=== PATIENT | male | born 1955 | race Caucasian/White ===

== ENCOUNTER 2017-03-29 06:48 | Day surgery (SDC) | payer BC ==
--- NOTE | 2017-03-21 10:15 | HP ---
DATE OF ADMISSION: 03/29/2017 HISTORY OF PRESENT ILLNESS: This is the first orthopedic outpatient admission for surgery for this 61-year- old male, who is being brought in for a right carpal tunnel release after suffering acute right carpal tunnel syndrome for the last 6-7 weeks with no improvement and treatment. 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 The procedure has been outlined to him. He understands the procedure and has consented to it. ALLERGIES: To sulfa. PAST MEDICAL HISTORY: The patient has a history of high blood pressure, type 2 diabetes along with asthma. He notes no specific medical problems at this point, has been stable. CURRENT MEDICATIONS: The patient currently is on lisinopril, Advair, and metformin. PAST SURGICAL HISTORY: Positive. The patient has had previous surgery, back surgeries and has had no anesthesia problems with the surgical procedures themselves. REVIEW OF SYSTEMS: The patient is a smoker. He smokes approximately 1 cigarette per day. Currently, he is working to quit on the smoking side. Alcohol, the patient is only occasional social drinker at this time. The patient notes no history of bleeding or any type of blood clot formation in the past. PHYSICAL EXAMINATION: GENERAL: Examination today reveals a well-developed, well-nourished, 61-year- old male, in moderate distress. HEAD EYES, EARS, NOSE, AND THROAT: Normocephalic. NECK: Supple. CHEST: Clear. CARDIAC: Regular rate. ABDOMEN: Soft. : Intact. EXTREMITIES: Examination of the right hand reveals a severe Tinel's reaction to the right hand carpal tunnel area. Positive decrease sensation to the thumb, index, middle, and ring finger. The patient has a weak stone banker formation. Circulation is intact. ASSESSMENT: Acute carpal tunnel syndrome, right wrist. Failed treatment. PLAN: This patient will undergo surgical right carpal tunnel ligament release. The procedure has been outlined to him. He understands the procedure and has consented to it. MMLIZET /[id number] MTDDana
[~2017-03-29 06:48] MED LIST: Lactated Ringers 1,000 ML IV SCH; Lidocaine 1%/Sod Bicarbonate in NS 8.4% 1 ML Syringe PRN; Sodium Chloride 0.9% 10 ML Syringe FLUSH PRN
[2017-03-29] MEDS ORDERED: fentaNYL 100 MCG/2 ML SDV ONE (07:05)
[2017-03-29] MEDS ORDERED: Propofol 200 MG/20 ML SDV ONE ×2 (07:05→08:22)
[2017-03-29] MEDS ORDERED: Midazolam 1 MG/ML 2 ML SDV ONE (07:05)
[2017-03-29] MEDS ORDERED: Lidocaine 0.5% 50 ML SDV ONE (07:12)
--- NOTE | 2017-03-29 07:18 | PCM.PREANE ---
Preanesthetic Assessment - Anesthesia/Transfusion/Family Hx Anesthesia History: Prior Anesthesia Without Reaction Family History of Anesthesia Reaction: No Intubation History: Unknown - Review of Systems General: No Symptoms Pulmonary: No Symptoms Cardiovascular: No Symptoms Gastrointestinal: No Symptoms Neurological: No Symptoms Other: Reports: None - Physical Assessment NPO Status Date: 03/29/17 NPO Status Time: 18:30 Pulse: 64 O2 Sat by Pulse Oximetry: 98 Respiratory Rate: 16 Blood Pressure: 120/71 Temperature: 97.3 C Height: 1.78 m Weight: 94.347 kg ASA Class: 3 ROM/Head Extension: Full Lungs: Clear to Auscultation Cardiovascular: Regular Rate - Allergies Allergies/Adverse Reactions: Allergies Allergy/AdvReac Type Severity Reaction Status Date / Time Sulfa (Sulfonamide Allergy Severe Hives Verified 03/28/17 14:51 Antibiotics) Fish Containing Products Allergy Swelling Verified 03/28/17 14:51 nut - unspecified [nut] Allergy Swelling Verified 03/28/17 14:51 - Anesthesia Plan Pre-Op Medication Ordered: Anxiolytic - Acknowledgements Anesthesia Type Planned: MARILYNN Pt an Appropriate Candidate for the Planned Anesthesia: Yes Alternatives and Risks of Anesthesia Discussed w Pt/Guardian: Yes Pt/Guardian Understands and Agrees with Anesthesia Plan: Yes PreAnesthesia Questionnaire HEENT History: Reports: Sinusitis, Other (See Below) Other HEENT History: impacted cerumen Cardiovascular History: Reports: High Cholesterol, Hypertension Respiratory History: Reports: Asthma, Sleep Apnea, Other (See Below) Other Respiratory History: bronchitis Gastrointestinal History: Reports: Other (See Below) Other Gastrointestinal History: hernia repair, GERD, anal fistula Genitourinary History: Reports: Other (See Below) Other Genitourinary History: dysuria, elevated PSA [employer]PERATOR History: Reports: None Musculoskeletal History: Reports: None Neurological History: Psychiatric History: Reports: None Endocrine/Metabolic History: Reports: None Hematologic History: Reports: Anemia Immunologic History: Reports: None Oncologic (Cancer) History: Reports: None Dermatologic History: Reports: Other (See Below) Other Dermatologic History: back surgery, achilles tendinitis, spinal stenosis, low back pain - Past Surgical History Head Surgeries/Procedures: Reports: None GI Surgical History: Reports: Appendectomy, Colonoscopy Neurological Surgical History: Reports: Laminectomy, Spinal Fusion - SUBSTANCE USE Smoking Status *Q: Current Every Day Smoker Tobacco Use Within Last Twelve Months: No Days Per Week of Alcohol Use: 1 Number of Drinks Per Day: 2 Total Drinks Per Week: 2 Recreational Drug Use History: No - HOME MEDS Home Medications: Home Meds metFORMIN [Glucophage XR] 500 tab PO DAILY 02/25/14 [History] Ezetimibe [Zetia] 10 mg PO DAILY 09/12/16 [History] Albuterol [IJD: Albuterol HFA] 2 puff INH Q4H PRN 03/28/17 [History] Aspirin 81 mg PO DAILY 03/28/17 [History] Fluticasone/Salmeterol [Advair 250-50 Diskus] 1 puff INH BID 03/28/17 [History] Lisinopril/Hydrochlorothiazide [Lisinopril-Hctz 20-12.5 mg Tab] 1 tab PO DAILY 03/28/17 [History] - CURRENT (IN HOUSE) MEDS Current Meds: Current Medications Lactated Ringer's (Ringers, Lactated) 1,000 mls @ 125 mls/hr IV ASDIRECTED ISIDRO Stop: 03/29/17 23:00 Lidocaine/Sodium Bicarbonate (Buffered Lidocaine 1% In Ns 8.4%) 0.25 ml .XX ONETIME PRN PRN Reason: Prior to IV Start Stop: 03/29/17 18:00 Sodium Chloride (Saline Flush) 10 ml FLUSH ASDIRECTED PRN PRN Reason: Keep Vein Open Stop: 03/29/17 18:00 Discontinued Medications Fentanyl (Sublimaze) Confirm Administered Dose 100 mcg .ROUTE .STK-MED ONE Stop: 03/29/17 07:06 Lidocaine HCl (Xylocaine-Mpf 0.5%) Confirm Administered Dose 50 ml .ROUTE .STK- MED ONE Stop: 03/29/17 07:13 Midazolam HCl (Versed 1 Mg/Ml) Confirm Administered Dose 2 mg .ROUTE .STK-MED ONE Stop: 03/29/17 07:06 Propofol (Diprivan 20 Ml) Confirm Administered Dose 200 mg .ROUTE .STK-MED ONE Stop: 03/29/17 07:06
[2017-03-29] MEDS ORDERED: Acetaminophen/HYDROcodone 325-5 MG Tab PO PRN (07:37)
[2017-03-29] MEDS ORDERED: Ondansetron 4 MG/2 ML SDV ONE (08:11)
[2017-03-29] MEDS ORDERED: Lidocaine 1% 2 ML ONE ×2 (08:20)
[2017-03-29] MEDS ORDERED: ceFAZolin 1 GM Vial ONE ×2 (08:21)
[2017-03-29] MEDS ORDERED: Sodium Bicarbonate 8.4% 50 MEQ/50 ML SDV ONE (08:22)
[2017-03-29] MEDS ORDERED: Dexamethasone 4 MG/ML SDV ONE (08:29)
[2017-03-29] MEDS ORDERED: Ketorolac 30 MG/ML SDV ONE (08:41)
[2017-03-29 08:48] VITALS: BP 111/68
--- NOTE | 2017-03-29 10:49 | PCM48HPAN ---
Post Anesthesia Note - EVALUATION WITHIN 48HRS OF ANESTHETIC Vital Signs in Normal Range: Yes Patient Participated in Evaluation: Yes Respiratory Function Stable: Yes Airway Patent: Yes Cardiovascular Function Stable: Yes Hydration Status Stable: Yes Pain Control Satisfactory: Yes Nausea and Vomiting Control Satisfactory: Yes Mental Status Recovered: Yes
--- NOTE | 2017-03-29 12:53 | OR ---
DATE OF OPERATION: 03/29/2017 SURGEON: Ronak Martínez MD PREOPERATIVE DIAGNOSIS: Severe carpal tunnel syndrome, right wrist, failed treatment. POSTOPERATIVE DIAGNOSIS: Severe carpal tunnel syndrome, right wrist, failed treatment. ANESTHESIA: Emily block with sedation. OPERATION PERFORMED: Right carpal tunnel ligament release, exploration of right carpal tunnel. DESCRIPTION OF PROCEDURE: The patient was taken to the operative room in a supine position and was placed under a light sedation with a [place] block anesthesia to the right upper extremity. After adequate anesthesia, the right arm was then prepped and draped by standard technique, and the operation proceeded with evaluation for approach to the right carpal tunnel using the radial aspect of the ring finger and beginning the incision parallel to that, approximately 1 cm distal to the flexion crease. Approximately, a 1.5 cm incision was used penetrating through the skin and the subcutaneous tissues. These were dissected off the palmar fascia, which was incised to expose the carpal ligament. Once the carpal ligament was exposed and, by direct visualization, was incised, entering the carpal canal by direct visualization. This was released proximally and distally by direct visualization, and then the operation proceeded with completion of release to just above the flexion crease using the carpal mini-instruments. Once the release was completed, the proximal portion was inspected. The nerve showed that the vasa vasorum returned very nicely into the area of release. By probing, no restricted bands could be seen covering or putting pressure on the nerve up to the flexion crease area. The operation then proceeded distally. The edge of the ligament was identified in the palmar fascia and then by direct visualization, again staying to the ulnar aspect of the median nerve, completion of the release was carried out to the palmar fatty tissue area. This was gently dissected away from the nerve area completing the decompression. The area was then thoroughly irrigated. Inspection of the nerve saw the vasa vasorum return entirely. There was significant bruising to the nerve at the base of the thenar eminence and in the area of major constriction and compression on the nerve itself. Once the release was completed and was satisfied that no further restricted bands laid across or putting pressure on the nerve, the operation proceeded with closure of the skin in a horizontal 4-0 Prolene mattress suture and then reinforced with 5-0 Prolene vertical suture. Standard dressings and splint was applied. The patient tolerated this procedure well. He left the operating room in a stable condition to his room for recovery. ESTIMATED BLOOD LOSS: MMODAL /[id number] MTDD
== END 2017-03-29 09:25 | disposition home or self-care (01) ==
LOC: JD.SDS 06:48
PROVIDERS: ATTEND Specialist
DX: G56.01 Carpal tunnel syndrome, right upper limb (principal); J45.21 Mild intermittent asthma with (acute) exacerbation; I10 Essential (primary) hypertension; E78.5 Hyperlipidemia, unspecified; E11.9 Type 2 diabetes mellitus without complications; E78.00 Pure hypercholesterolemia, unspecified; K21.9 Gastro-esophageal reflux disease without esophagitis; Z91.013 Allergy to seafood; Z91.018 Allergy to other foods; Z88.2 Allergy status to sulfonamides; Z79.84 Long term (current) use of oral hypoglycemic drugs; Z79.82 Long term (current) use of aspirin; Z79.899 Other long term (current) drug therapy; Z90.49 Acquired absence of other specified parts of digestive tract; Z98.890 Other specified postprocedural states; F17.210 Nicotine dependence, cigarettes, uncomplicated
CPT/HCPCS: 64721; J0690; J1100; J1885; J2250; J2405; J3010; J7120; 01810; J2704

== ENCOUNTER 2017-11-26 09:48 | Emergency (ER) | payer BC ==
--- NOTE | 2017-11-26 10:59 | EDM.PDOC ---
ED HPI GENERAL MEDICAL PROBLEM - General Chief Complaint: Syncope Stated Complaint: ABDOMINAL PAIN/DIZZY Time Seen by Provider: 11/26/17 10:36 Source of Information: Reports: Patient History Limitations: Reports: No Limitations - History of Present Illness INITIAL COMMENTS - FREE TEXT/NARRATIVE: Patient is a 62-year-old male with a history of diabetes, hypertension, and COPD who presents to the ED c/o of intermittent episodes of upset stomach, dull headache, and intermittent dizziness. States symptoms started this past Tuesday. He was evaluated in the walk-in clinic and prescribed Zofran. The stomach discomfort has subsided. He has no nausea. He was seen by his primary care provider on Tuesday and only addressed the stomach issues and not the dizziness. He's had intermittent hot and cold flashes with sweating. With the onset of dizziness he occasionally has some blurred vision but states there is no loss of vision. He describes the blurred vision as a sensation of the room is spinning. He denies any ear pain. But notes his right ear he had some thumping noise present. There's been no vision loss. No recent sinus congestion , sore throat, chest pain, shortness of breath, nausea or vomiting today, abdominal pain today, dysuria, diarrhea, increased edema to his lower extremity is, unsteady gait, or any additional complaints. Dizziness is influenced by body position changes. No change noted with looking up or turning his head left to right. Posterior Head Pain Score (Numeric/FACES): 4 - Related Data Allergies Allergy/AdvReac Type Severity Reaction Status Date / Time Sulfa (Sulfonamide Allergy Severe Hives Verified 11/26/17 10:22 Antibiotics) Fish Containing Products Allergy Swelling Verified 11/26/17 10:22 nut - unspecified [nut] Allergy Swelling Verified 11/26/17 10:22 Home Meds: Home Meds metFORMIN [Glucophage XR] 500 tab PO DAILY 02/25/14 [History] Ezetimibe [Zetia] 10 mg PO DAILY 09/12/16 [History] Albuterol [IJD: Albuterol HFA] 2 puff INH Q4H PRN 03/28/17 [History] Aspirin 81 mg PO DAILY 03/28/17 [History] Fluticasone/Salmeterol [Advair 250-50 Diskus] 1 puff INH BID 03/28/17 [History] Lisinopril/Hydrochlorothiazide [Lisinopril-Hctz 20-12.5 mg Tab] 12.5 - 20 mg PO DAILY 03/28/17 [History] Meclizine HCl 25 mg PO BID PRN #20 tab.chew 11/26/17 [Rx] Ondansetron HCl [Zofran] 4 mg PO Q6H PRN 11/26/17 [History] Past Medical History HEENT History: Reports: Impaired Vision, Sinusitis, Other (See Below) Other HEENT History: impacted cerumen, wears eyeglasses. Cardiovascular History: Reports: High Cholesterol, Hypertension Respiratory History: Reports: Asthma, Bronchitis, Recurrent, Sleep Apnea Other Respiratory History: bronchitis Gastrointestinal History: Reports: GERD, Other (See Below) Other Gastrointestinal History: hernia repair, anal fistula Genitourinary History: Reports: Other (See Below) Other Genitourinary History: dysuria, elevated PSA GAS LOAD DISPATCHER History: Reports: None Musculoskeletal History: Reports: Fracture Other Musculoskeletal History: spinal stenosis. Neurological History: Reports: Migraines Psychiatric History: Reports: None Endocrine/Metabolic History: Reports: Diabetes, Type II Hematologic History: Reports: Anemia Immunologic History: Reports: None Oncologic (Cancer) History: Reports: None Dermatologic History: Reports: Other (See Below) Other Dermatologic History: back surgery, achilles tendinitis, spinal stenosis, low back pain - Infectious Disease History Infectious Disease History: Reports: Chicken Pox, Measles, Mumps, Shingles - Past Surgical History Head Surgeries/Procedures: Reports: None GI Surgical History: Reports: Appendectomy, Colonoscopy Neurological Surgical History: Reports: Laminectomy, Spinal Fusion Musculoskeletal Surgical History: Reports: Carpal Tunnel Other Musculoskeletal Surgeries/Procedures:: back surgery. Social & Family History - Tobacco Use Smoking Status *Q: Current Every Day Smoker Years of Tobacco use: 47 Packs/Tins Daily: 1 - Caffeine Use Caffeine Use: Reports: Coffee - Alcohol Use Days Per Week of Alcohol Use: 1 Number of Drinks Per Day: 2 Total Drinks Per Week: 2 - Recreational Drug Use Recreational Drug Use: No ED ROS GENERAL - Review of Systems Review Of Systems: ROS reveals no pertinent complaints other than HPI. ED EXAM, GENERAL - Physical Exam Exam: See Below Exam Limited By: No Limitations General Appearance: Alert, WD/WN, No Apparent Distress Eye Exam: Bilateral Eye: EOMI, Nystagmus (none noted Vertical/horizontal), PERRL Ears: Normal External Exam, Normal Canal, Hearing Grossly Normal, Normal TMs Nose: Normal Inspection Throat/Mouth: Normal Voice, No Airway Compromise Neck: Normal Inspection, Supple, Non-Tender, Full Range of Motion Respiratory/Chest: No Respiratory Distress, Lungs Clear, Normal Breath Sounds, No Accessory Muscle Use, Chest Non-Tender Cardiovascular: Normal Peripheral Pulses, Regular Rate, Rhythm Peripheral Pulses: 4+: Radial (L), Radial (R) GI/Abdominal: Normal Bowel Sounds, Soft, Non-Tender, No Organomegaly, No Distention Back Exam: Normal Inspection Extremities: Normal Inspection, Non-Tender, No Pedal Edema, Normal Capillary Refill Neurological: Alert, Oriented, CN II-XII Intact, Normal Cognition, Normal Gait, No Motor/Sensory Deficits, Other (No slurred speach, facial droop, weakness discrepancy's to the upper and lower extremities.) Psychiatric: Normal Affect, Normal Mood Skin Exam: Warm, Dry, Intact, Normal Color Course - Vital Signs Last Recorded V/S: Last Vital Signs Temp 97.5 F 11/26/17 10:05 Pulse 63 11/26/17 15:30 Resp 16 11/26/17 15:30 BP 146/92 H 11/26/17 15:30 Pulse Ox 99 11/26/17 15:30 Orthostatic Blood Pressure [ 129/77 Standing] Orthostatic Blood Pressure [ 128/68 Sitting] Orthostatic Blood Pressure [ 144/70 Supine] - Orders/Labs/Meds Orders: Active Orders 24 hr Category Date Time Status Cardiac Education [RC] Click to Edit Care 11/26/17 15:24 Active Cardiac Monitoring [RC] . DIRECTED Care 11/26/17 15:24 Active EKG 12 Lead [EKG Documentation Completion] [RC] STAT Care 11/26/17 15:20 Active EKG Documentation Completion [RC] STAT Care 11/26/17 11:22 Active Peripheral IV Care [RC] . DIRECTED Care 11/26/17 11:22 Active UA W/MICROSCOPIC [URIN] Stat Lab 11/26/17 11:30 Ordered Peripheral IV Insertion Adult [OM.PC] Routine Oth 11/26/17 11:22 Ordered Peripheral IV Insertion Adult [OM.PC] Stat Oth 11/26/17 11:22 Ordered Labs: Laboratory Tests 11/26/17 11/26/17 11/26/17 Range/Units 11:30 11:40 11:40 WBC 9.80 H (4.23-9.07) K/mm3 RBC 4.99 (4.63-6.08) M/mm3 Hgb 13.9 (13.7-17.5) gm/L Hct 43.1 (40.1-51.0) % MCV 86.4 (79.0-92.2) fl MCH 27.9 (25.7-32.2) pg MCHC 32.3 (32.2-35.5) g/dl RDW Std Deviation 43.4 (35.1-43.9) fL Plt Count 332 (163-337) K/mm3 MPV 9.6 (9.4-12.3) fl Neutrophils % (Manual) 69 H (40-60) % Band Neutrophils % 0 (0-10) % Lymphocytes % (Manual) 24 (20-40) % Atypical Lymphs % 0 % Monocytes % (Manual) 4 (2-10) % Eosinophils % (Manual) 2 (0.8-7.0) % Basophils % (Manual) 1 (0.2-1.2) Platelet Estimate Adequate RBC Morph Comment Normal PT 9.9 (8.0-13.0) SECONDS INR 0.93 APTT 31 (22-36) SECONDS Sodium (136-145) mEq/L Potassium (3.5-5.1) mEq/L Chloride (98-107) mEq/L Carbon Dioxide (21-32) mEq/L Anion Gap (5-15) BUN (7-18) mg/dL Creatinine (0.7-1.3) mg/dL Est Cr Clr Drug Dosing mL/min Estimated GFR (MDRD) (>60) mL/min BUN/Creatinine Ratio (14-18) Glucose (74-106) mg/dL Calcium (8.5-10.1) mg/dL Total Bilirubin (0.2-1.0) mg/dL AST (15-37) U/L ALT (16-63) U/L Alkaline Phosphatase (46-116) U/L Troponin I (0.00-0.056) ng/mL Total Protein (6.4-8.2) g/dl Albumin (3.4-5.0) g/dl Globulin gm/dL Albumin/Globulin Ratio (1-2) TSH 3rd Generation (0.358-3.74) uIU/mL Urine Color Yellow (Yellow) Urine Appearance Clear (Clear) Urine pH 5.5 (5.0-8.0) Ur Specific Delta 1.015 (1.005-1.030) Urine Protein Negative (Negative) Urine Glucose (UA) Negative (Negative) Urine Ketones Negative (Negative) Urine Occult Blood Negative (Negative) Urine Nitrite Negative (Negative) Urine Bilirubin Negative (Negative) Urine Urobilinogen 0.2 (0.2-1.0) Ur Leukocyte Esterase Negative (Negative) Urine RBC Not seen (0-5) /hpf Urine WBC 0-5 (0-5) /hpf Ur Epithelial Cells Not seen (0-5) /hpf Urine Bacteria Not seen (FEW) /hpf Urine Mucus Few (FEW) /hpf 11/26/17 11/26/17 Range/Units 11:40 14:40 WBC (4.23-9.07) K/mm3 RBC (4.63-6.08) M/mm3 Hgb (13.7-17.5) gm/L Hct (40.1-51.0) % MCV (79.0-92.2) fl MCH (25.7-32.2) pg MCHC (32.2-35.5) g/dl RDW Std Deviation (35.1-43.9) fL Plt Count (163-337) K/mm3 MPV (9.4-12.3) fl Neutrophils % (Manual) (40-60) % Band Neutrophils % (0-10) % Lymphocytes % (Manual) (20-40) % Atypical Lymphs % % Monocytes % (Manual) (2-10) % Eosinophils % (Manual) (0.8-7.0) % Basophils % (Manual) (0.2-1.2) Platelet Estimate RBC Morph Comment PT (8.0-13.0) SECONDS INR APTT (22-36) SECONDS Sodium 144 (136-145) mEq/L Potassium 4.1 (3.5-5.1) mEq/L Chloride 107 (98-107) mEq/L Carbon Dioxide 25 (21-32) mEq/L Anion Gap 16.1 H (5-15) BUN 20 H (7-18) mg/dL Creatinine 1.4 H (0.7-1.3) mg/dL Est Cr Clr Drug Dosing 56.11 mL/min Estimated GFR (MDRD) 52 (>60) mL/min BUN/Creatinine Ratio 14.3 (14-18) Glucose 85 (74-106) mg/dL Calcium 9.5 (8.5-10.1) mg/dL Total Bilirubin 0.2 (0.2-1.0) mg/dL AST 14 L (15-37) U/L ALT 18 (16-63) U/L Alkaline Phosphatase 76 (46-116) U/L Troponin I < 0.017 < 0.017 (0.00-0.056) ng/mL Total Protein 7.9 (6.4-8.2) g/dl Albumin 4.4 (3.4-5.0) g/dl Globulin 3.5 gm/dL Albumin/Globulin Ratio 1.3 (1-2) TSH 3rd Generation 1.767 (0.358-3.74) uIU/mL Urine Color (Yellow) Urine Appearance (Clear) Urine pH (5.0-8.0) Ur Specific Delta (1.005-1.030) Urine Protein (Negative) Urine Glucose (UA) (Negative) Urine Ketones (Negative) Urine Occult Blood (Negative) Urine Nitrite (Negative) Urine Bilirubin (Negative) Urine Urobilinogen (0.2-1.0) Ur Leukocyte Esterase (Negative) Urine RBC (0-5) /hpf Urine WBC (0-5) /hpf Ur Epithelial Cells (0-5) /hpf Urine Bacteria (FEW) /hpf Urine Mucus (FEW) /hpf Meds: Medications Discontinued Medications Generic Name Dose Route Start Last Admin Trade Name Freq PRN Reason Stop Dose Admin Acetaminophen 975 mg 11/26/17 11:29 11/26/17 12:02 Tylenol PO 11/26/17 11:30 975 mg NOW ONE Administration Aspirin 243 mg 11/26/17 15:19 11/26/17 15:24 Aspirin PO 11/26/17 15:20 243 mg ONETIME ONE Administration Heparin Sodium (Porcine) 4,000 units 11/26/17 15:43 Heparin Sodium IVPUSH 11/26/17 15:44 ONETIME ONE Sodium Chloride 1,000 mls @ 500 mls/hr 11/26/17 11:22 11/26/17 12:02 Normal Saline IV 11/26/17 13:21 500 mls/hr ONETIME ONE Administration Heparin Sodium/Dextrose 25,000 units in 500 mls @ 21.772 mls/hr 11/26/17 15: 30 Heparin 25,000 Units In D5w 500 Ml IV TITRATE ISIDRO Protocol 12 UNITS/KG/HR Meclizine HCl 12.5 mg 11/26/17 11:22 11/26/17 12:03 Antivert PO 11/26/17 11:23 12.5 mg ONETIME ONE Administration Metoprolol Tartrate 25 mg 11/26/17 15:25 Lopressor PO 11/26/17 15:26 ONETIME ONE Simvastatin 80 mg 11/26/17 15:25 Zocor PO 11/26/17 15:26 ONETIME ONE Sodium Chloride 10 ml 11/26/17 11:21 11/26/17 11:40 Saline Flush FLUSH 10 ml ASDIRECTED PRN Administration Keep Vein Open - Re-Assessments/Exams Free Text/Narrative Re-Assessment/Exam: Patient was in the E.D. 1 hr and 10 minutes prior to being evaluated by me. IV established with normal saline 500 mls per hour, tylenol 975mgPO, and also Antivert 12.5 mg by mouth. Initial labs and studies include CBC, chem 14, coag studies, troponin, UA, EKG, and chest x-ray. CXR: No acute findings noted when compared with previous cxr. Reviewed with Dr. Addison. EKG: Sinus rhythm at a rate of 60 with few atrial premature complexes. No acute ST changes noted. 1236 Labs reviewed: CBC essentially normal. She panel revealed AG of 16.1, peeling 20, creatinine 1.4 (baseline), glucose 85, troponin less than 0.017, TSH normal. UA negative for any concerning findings. 2nd troponin orderd for 2:40. 11/26/17 14:02 Headache and dizziness has subsided. 11/26/17 15:19 second troponin came back elevated at 0.098. Should results of the labs and other studies with the patient. He has no symptoms at this point. I order 243 mg by mouth of aspirin. He did take [address] [facility] transfer. 11/26/17 15:21 Patients HR 68 ordered metoprolol 25mg PO and zocor 80mg PO. Heparin bolus/gtt started per protocol. EKG: Sinus Rhythm rate of 52. No acute ST changes noted. Few PJC's. [address] [facility] One call they will call back once hospitalists home care consultant is available. 11/26/17 15:50 Lab reported back error with 2nd troponin. This was not initially noticed. Thus delay in retesting and reporting back. Second troponin is within normal limits. All meds ordered at 1521 cancelled. Patient has no symptoms will discharge home with instructions as documented. Departure - Departure Time of Disposition: 16:08 Disposition: Home, Self-Care 01 Condition: Good Clinical Impression: BPV (benign positional vertigo) Qualifiers: Laterality: unspecified laterality Qualified Code(s): H81.10 - Benign paroxysmal vertigo, unspecified ear Headache Qualifiers: Headache type: unspecified Headache chronicity pattern: episodic headache Intractability: not intractable Qualified Code(s): R51 - Headache Prescriptions: Meclizine HCl 25 mg PO BID PRN #20 tab.chew PRN Reason: Dizziness Instructions: General Headache Without Cause, Vertigo, [id number], Dizziness , [id number] Referrals: Padilla Sosa MD [Primary Care Provider] - Forms: ED Department Discharge Additional Instructions: Taking meclizine as prescribed. If you experience any disequilibrium please take your time with body position changes. Sit down and allow symptoms to resolve. Push the fluids. Utilize Tylenol for headache. Eat a balanced diet. Continue taking all your home medications as prescribed. In relation to the upset stomach may use Zantac 150 milligrams twice a day. Maalox as needed for intermittent relief. Continue taking the Prilosec. Follow-up with PCP this coming week for reevaluation. Do not drive while taking the meclizine. Return to the ED if he develop any new or worsening symptoms. - My Orders Last 24 Hours: My Active Orders 11/26/17 11:22 EKG Documentation Completion [RC] STAT Peripheral IV Care [RC] . DIRECTED Peripheral IV Insertion Adult [OM.PC] Routine Peripheral IV Insertion Adult [OM.PC] Stat 11/26/17 11:30 UA W/MICROSCOPIC [URIN] Stat 11/26/17 15:20 EKG 12 Lead [EKG Documentation Completion] [RC] STAT 11/26/17 15:24 Cardiac Education [RC] Click to Edit Cardiac Monitoring [RC] . DIRECTED - Assessment/Plan Last 24 Hours: My Active Orders 11/26/17 11:22 EKG Documentation Completion [RC] STAT Peripheral IV Care [RC] . DIRECTED Peripheral IV Insertion Adult [OM.PC] Routine Peripheral IV Insertion Adult [OM.PC] Stat 11/26/17 11:30 UA W/MICROSCOPIC [URIN] Stat 11/26/17 15:20 EKG 12 Lead [EKG Documentation Completion] [RC] STAT 11/26/17 15:24 Cardiac Education [RC] Click to Edit Cardiac Monitoring [RC] . DIRECTED
[2017-11-26] MEDS ORDERED: Sodium Chloride 0.9% 10 ML Syringe FLUSH PRN (11:21)
[2017-11-26] MEDS ORDERED: Meclizine 12.5 MG Tab PO ONE (11:22)
[2017-11-26] MEDS ORDERED: Sodium Chloride 0.9% 1,000 ML IV ONE (11:22)
[2017-11-26] MEDS ORDERED: Acetaminophen 325 MG Tab PO ONE (11:29)
[2017-11-26] MEDS ORDERED: Aspirin 81 MG Tab.Chew PO ONE (15:19)
[2017-11-26] MEDS ORDERED: Simvastatin 20 MG Tab PO ONE (15:25)
[2017-11-26] MEDS ORDERED: Metoprolol Tartrate 25 MG Tab PO ONE (15:25)
[2017-11-26] MEDS ORDERED: Heparin Sodium/D5W 25,000 UNITS/500 ML BAG IV SCH (15:30)
[2017-11-26] MEDS ORDERED: Heparin Sodium 5,000 Units/ML Vial IVPUSH ONE (15:43)
[2017-11-26 16:39] VITALS: BP 146/92
--- NOTE | 2017-11-26 18:34 | CR ---
Chest: Portable view of the chest was obtained. Comparison: Prior chest CT of 02/15/17 and chest x-ray of 12/05/13. Heart size and mediastinum are within normal limits for portable technique. Lungs are clear. Bony structures are grossly intact. Impression: 1. Nothing acute is seen on portable chest x-ray. Diagnostic code #1
== END 2017-11-26 16:30 | disposition home or self-care (01) ==
LOC: JD.ED 09:48
DX: H81.10 Benign paroxysmal vertigo, unspecified ear (principal); E78.00 Pure hypercholesterolemia, unspecified; F17.210 Nicotine dependence, cigarettes, uncomplicated; I10 Essential (primary) hypertension; E11.9 Type 2 diabetes mellitus without complications; Z88.2 Allergy status to sulfonamides; Z91.013 Allergy to seafood; Z91.018 Allergy to other foods; Z79.84 Long term (current) use of oral hypoglycemic drugs; Z79.899 Other long term (current) drug therapy; Z79.82 Long term (current) use of aspirin
CPT/HCPCS: 36415; 71045; 80053; 81001; 84443; 84484; 85025; 85610; 85730; 93005; 96360; 96361; 99284; A9270; J7040; J7050; 93010; 99285

== ENCOUNTER 2017-12-22 17:12 | Emergency (ER) | payer BC ==
[2017-12-22 17:25] VITALS: BP 127/73
--- NOTE | 2017-12-22 17:31 | EDM.PDOC ---
ED HPI GENERAL MEDICAL PROBLEM - General Chief Complaint: Lower Extremity Injury/Pain Stated Complaint: LEFT HIP PAIN Time Seen by Provider: 12/22/17 17:31 Source of Information: Reports: Patient History Limitations: Reports: No Limitations - History of Present Illness INITIAL COMMENTS - FREE TEXT/NARRATIVE: -year-old male presents to the ED with severe pain in his right buttock area that radiates down the lateral aspect of his leg to the knee but not below. As 2 days ago he went home from work with pain in his right buttock area that bothered him a good portion of the night particularly when he rolled over removed. By morning it seemed to be somewhat better in the next entire day was pretty good however after work yesterday pain started in his right buttock and started to radiate down his leg to the knee. Pain is constant deep aching and boring. It is severe he rates it 10 out of 10. Patient has had previous lumbar spine surgery for spinal stenosis but he had neuropathic pain in his right leg and buttock. Has not identified any rash development on his leg or buttock. is walking with a definitive limp. No fever or chills. Onset: Gradual (Over the last 3-1/2 days.) Onset Date: 12/19/17 Duration: Day(s):, Getting Worse, Waxing/Waning (Initially but now it's constant.) Location: Reports: Other (Primarily pain in his left buttock rating down the lateral aspect of his left leg to the knee.) Quality: Reports: Burning, Other Severity: Severe (Deep aching pressure. And a 10) Improves with: Reports: Rest (No real improvement even with rest or sitting.) Worsens with: Reports: Movement (It is perhaps made a little worse by walking.) Context: Reports: Other (No known injuries.). 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 Also started on Flexeril 10 mg every 8 hours which has a stent touch the pain but this made him very drowsy.) Left Hip Pain Score (Numeric/FACES): 8 - Related Data Allergies Allergy/AdvReac Type Severity Reaction Status Date / Time Sulfa (Sulfonamide Allergy Severe Hives Verified 12/22/17 17:21 Antibiotics) Fish Containing Products Allergy Swelling Verified 12/22/17 17:21 nut - unspecified [nut] Allergy Swelling Verified 12/22/17 17:21 Home Meds: Home Meds metFORMIN [Glucophage XR] 500 tab PO DAILY 02/25/14 [History] Ezetimibe [Zetia] 10 mg PO DAILY 09/12/16 [History] Albuterol [IJD: Albuterol HFA] 2 puff INH Q4H PRN 03/28/17 [History] Aspirin 81 mg PO DAILY 03/28/17 [History] Fluticasone/Salmeterol [Advair 250-50 Diskus] 1 puff INH BID 03/28/17 [History] Lisinopril/Hydrochlorothiazide [Lisinopril-Hctz 20-12.5 mg Tab] 12.5 - 20 mg PO DAILY 03/28/17 [History] Cyclobenzaprine [Flexeril] 5 mg PO TID 12/22/17 [History] Diclofenac Sodium [Voltaren] 50 mg PO TID #24 tab.ec 12/22/17 [Rx] Hydrocodone/Acetaminophen [Hydrocodon-Acetaminophen 5-325] 1 tab PO Q6H PRN [History] oxyCODONE HCl/Acetaminophen [Percocet 10-325 mg Tablet] 1 each PO Q4H PRN #24 tablet 12/22/17 [Rx] predniSONE [Deltasone] 20 mg PO BID #12 tablet 12/22/17 [Rx] Past Medical History HEENT History: Reports: Impaired Vision, Sinusitis, Other (See Below) Other HEENT History: impacted cerumen, wears eyeglasses. 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 Neurological History: Reports: Migraines Psychiatric History: Reports: None Endocrine/Metabolic History: Reports: Diabetes, Type II Hematologic History: Reports: Anemia Immunologic History: Reports: None Oncologic (Cancer) History: Reports: None Dermatologic History: Reports: Other (See Below) Other Dermatologic History: back surgery, achilles tendinitis, spinal stenosis, low back pain - Infectious Disease History Infectious Disease History: Reports: Chicken Pox, Measles, Mumps, Shingles - Past Surgical History Head Surgeries/Procedures: Reports: None GI Surgical History: Reports: Appendectomy, Colonoscopy Neurological Surgical History: Reports: Laminectomy, Other (See Below) (States he had laminectomy at 2 levels for spinal stenosis affecting the right buttock and leg in 2016. Has no hardware in place) Musculoskeletal Surgical History: Reports: Carpal Tunnel Other Musculoskeletal Surgeries/Procedures:: back surgery. Social & Family History - Tobacco Use Smoking Status *Q: Current Every Day Smoker Years of Tobacco use: 1 Packs/Tins Daily: 40 - Caffeine Use Caffeine Use: Reports: Coffee - Alcohol Use Days Per Week of Alcohol Use: 1 Number of Drinks Per Day: 2 Total Drinks Per Week: 2 - Recreational Drug Use Recreational Drug Use: No - Living Situation & Occupation Living situation: Reports: Occupation: Employed Review of Systems - Review of Systems Review Of Systems: See Below Constitutional: Reports: No Symptoms Eyes: Reports: No Symptoms Ears: Reports: No Symptoms Nose: Reports: No Symptoms Mouth/Throat: Reports: No Symptoms Respiratory: Reports: No Symptoms Cardiovascular: Reports: No Symptoms GI/Abdominal: Reports: No Symptoms Genitourinary: Reports: No Symptoms Musculoskeletal: Reports: Back Pain (Occasional low back pain.), Other (Early has severe pain in his left but talk rating down the lateral aspect of the leg in the L5 nerve root distribution but not below the knee.) Skin: Reports: No Symptoms Neurological: Reports: No Symptoms, Gait Disturbance Psychiatric: Reports: No Symptoms (Has a limping gait due to pain in the left but talks SI joint area.) ED EXAM, GENERAL - Physical Exam Exam: See Below Exam Limited By: No Limitations General Appearance: Alert, Moderate Distress (Patient is in moderate degree of pain. I know him fairly well and he is very stoic.) Eye Exam: Bilateral Eye: Normal Inspection Peripheral Pulses: 2+: Posterior Tibial (L), Posterior Tibial (R), Dorsalis Pedis (L), Dorsalis Pedis (R) Back Exam: Other (Examination of his lumbar spine reveals a well-healed midline scar. There is no paraspinal muscle spasm or localized tenderness to any of the facet joints of the lumbar spine. He has moderate pain on firm palpation of the upper two thirds of the left sacroiliac joint. There is no rash on the buttock to suggest shingles. However he pain points the pain medial to the SI joint in the sacral 2 or III nerve root distribution. I therefore question whether or not he is going to develop shingles. His pain appears to be neuropathic or neurogenic in origin.) Extremities: Other (Walking with a definitive limp due to buttock pain.) Neurological: Alert, Oriented, CN II-XII Intact, Normal Cognition, Normal Gait, Other (Radha sensation to the buttock and posterior lateral thigh.) Psychiatric: Normal Affect (Patient does appear to be in significant discomfort. ) Skin Exam: Warm, Dry, Intact, Normal Color, No Rash Course - Vital Signs Last Recorded V/S: Last Vital Signs Temp 36.6 C 12/22/17 17:18 Pulse 84 12/22/17 17:18 Resp 18 12/22/17 17:18 BP 127/73 12/22/17 17:18 Pulse Ox - Radiology Interpretation Free Text/Narrative:: 62-year-old gentleman presents to the ED with severe left buttock pain. The it started about 3 days ago initially was present after work and throughout the night but the next morning was much improved. That whole day was better but last evening after work pain started to increase and became constant in the left buttock and radiating down the lateral posterior thigh to his knee but not below the knee. Today the pain is been almost unbearable. Examination reveals no rashes to suggest symptoms at this time. He does have moderate pain on palpation of the sacroiliac joint on the left side. No lumbar spine pain identified. Patient will be treated for now for sacroiliitis although I highly suspicious that he may develop shingles in the sacral nerve root dermatome. He will return if he develops any rash on his buttock or leg. Treated with Percocet 10/3/25 milligrams strength one or 2 every 4-6 hours needed for pain relief. Prednisone 20 mg twice a day supper and breakfast for the next 6 days. Voltaren 50 mg 3 times daily with food for the next 8 days with 1 refill. She is to be seen in follow-up in 5-6 days time if not markedly improved sooner if his condition seems to worsen. Note given to excuse her from work place for at least tomorrow and likely Tuesday. Then he started to adopt a wait and see approach us whether he may be able to return to work next week. Departure - Departure Time of Disposition: 18:07 Disposition: Home, Self-Care 01 Condition: Fair Clinical Impression: Sacroiliitis - Discharge Information Prescriptions: Diclofenac Sodium [Voltaren] 50 mg PO TID #24 tab.ec oxyCODONE HCl/Acetaminophen [Percocet 10-325 mg Tablet] 1 each PO Q4H PRN #24 tablet PRN Reason: Pain relief predniSONE [Deltasone] 20 mg PO BID #12 tablet Referrals: Padilla Sosa MD [Primary Care Provider] - Forms: ED Department Discharge, ED Return to Work/School Form Additional Instructions: Evaluation in the emergency him today in regards to acute onset set of severe pain in the left but talk rating down the lateral aspect your leg towards her knee. Pain is strongly neurogenic in origin suggesting that there is nerve root inflammation in the. There also appears to be moderate inflammation of the sacroiliac joint on the left side Keep an eye out for any rash that may develop in this area in the next 3-4 days. Sometimes shingles will have severe neurogenic pain for 5-6 days before the rash shows up and then explains the source of the pain. Clinically it appears like the nerve is severely inflamed at sacral two/three level. If the rash does show up in this area returned to the ED over the weekend or your personal care physician during the week. In the meantime I have written a prescription for pain medication Percocet 10/325 mg one or 2 tablets every 4-6 hours needed for severe pain relief. Use Voltaren 50 mg 3 times daily with food to relieve pain and inflammation. This will take a good day and a half to start work well. Thirdly is Deltasone 20 mg twice daily with breakfast and supper for the next 6 days to relieve inflammation and thus pain. Her personal care physician if not markedly improved by Tuesday next week.
== END 2017-12-22 18:20 | disposition home or self-care (01) ==
LOC: JD.ED 17:12
DX: M46.1 Sacroiliitis, not elsewhere classified (principal); I10 Essential (primary) hypertension; J45.909 Unspecified asthma, uncomplicated; E11.9 Type 2 diabetes mellitus without complications; F17.210 Nicotine dependence, cigarettes, uncomplicated; Z88.2 Allergy status to sulfonamides; Z91.013 Allergy to seafood; Z91.018 Allergy to other foods; Z79.82 Long term (current) use of aspirin; Z79.899 Other long term (current) drug therapy
CPT/HCPCS: 99283

== ENCOUNTER 2018-11-21 10:13 | Emergency (ER) | payer BC ==
[2018-11-21] MEDS ORDERED: Orphenadrine 100 MG Tab.ER PO ONE (11:12)
[2018-11-21] MEDS ORDERED: Ketorolac 30 MG/ML SDV IM ONE (11:12)
--- NOTE | 2018-11-21 11:19 | EDM.PDOC ---
ED HPI GENERAL MEDICAL PROBLEM - General Chief Complaint: Back Pain or Injury Stated Complaint: LOWER BACK PAIN Time Seen by Provider: 11/21/18 10:45 Source of Information: Reports: Patient, RN Notes Reviewed History Limitations: Reports: No Limitations - History of Present Illness INITIAL COMMENTS - FREE TEXT/NARRATIVE: Patient is a 63-year-old male who presents to the ED for the evaluation of left lower back pain. He states that he woke up this morning with a slightly sore back. He states that he went about his day and started getting ready for work and sat down in his recliner. As he tried to get up out of his recliner he he states that the pain worsened at this time. He did take a couple Tylenol for pain relief. He does note that he has had previous injuries to his lower back, this includes a pinched nerve and bulging disc for which she had surgery on last year, and spinal stenosis. He notes that he did not have any trauma to the area nor has he done any extra lifting or other movements that should have aggravated this further. The patient does have some arthritis as well, he states that the pain is like someone stabbing him in the back with a knife. He notes his primary care provider as Dr. Sosa. He would rate his pain at a 9 out of 10 today. 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 Lower Back Pain Score (Numeric/FACES): 9 - Related Data Allergies Allergy/AdvReac Type Severity Reaction Status Date / Time Sulfa (Sulfonamide Allergy Severe Hives Verified 11/21/18 10:32 Antibiotics) Fish Containing Products Allergy Swelling Verified 11/21/18 10:32 nut - unspecified [nut] Allergy Swelling Verified 11/21/18 10:32 Home Meds: Home Meds metFORMIN [Glucophage XR] 500 tab PO DAILY 02/25/14 [History] Ezetimibe [Zetia] 10 mg PO DAILY 09/12/16 [History] Albuterol [IJD: Albuterol HFA] 2 puff INH Q4H PRN 03/28/17 [History] Aspirin 81 mg PO DAILY 03/28/17 [History] Fluticasone/Salmeterol [Advair 250-50 Diskus] 1 puff INH BID 03/28/17 [History] Lisinopril/Hydrochlorothiazide [Lisinopril-Hctz 20-12.5 mg Tab] 12.5 - 20 mg PO DAILY 03/28/17 [History] Orphenadrine [Norflex] 100 mg PO BID PRN #20 tab 11/21/18 [Rx] Rosuvastatin [Crestor] 10 mg PO DAILY 11/21/18 [History] Past Medical History HEENT History: Reports: Impaired Vision, Sinusitis, Other (See Below) Other HEENT History: impacted cerumen, wears eyeglasses. 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 Neurological History: Reports: Migraines, TIA Psychiatric History: Reports: None Endocrine/Metabolic History: Reports: Diabetes, Type II Hematologic History: Reports: Anemia Immunologic History: Reports: None Oncologic (Cancer) History: Reports: None Dermatologic History: Reports: Other (See Below) Other Dermatologic History: back surgery, achilles tendinitis, spinal stenosis, low back pain - Infectious Disease History Infectious Disease History: Reports: Chicken Pox, Measles, Mumps, Shingles - Past Surgical History Head Surgeries/Procedures: Reports: None HEENT Surgical History: Reports: Naso-Sinus Surgery GI Surgical History: Reports: Appendectomy, Colonoscopy Neurological Surgical History: Reports: Laminectomy, Other (See Below) Musculoskeletal Surgical History: Reports: Carpal Tunnel Other Musculoskeletal Surgeries/Procedures:: back surgery. Social & Family History - Tobacco Use Smoking Status *Q: Current Every Day Smoker Years of Tobacco use: 10 Packs/Tins Daily: 0.2 Used Tobacco, but Quit: Yes Month/Year Tobacco Last Used: 2015 - Caffeine Use Caffeine Use: Reports: Coffee - Recreational Drug Use Recreational Drug Use: No - Living Situation & Occupation Living situation: Reports: Occupation: Employed ED ROS GENERAL - Review of Systems Review Of Systems: See Below Constitutional: Reports: No Symptoms HEENT: Reports: No Symptoms Respiratory: Reports: No Symptoms Cardiovascular: Reports: No Symptoms Endocrine: Reports: No Symptoms GI/Abdominal: Reports: No Symptoms : Reports: No Symptoms Musculoskeletal: Reports: Back Pain (left lower) Skin: Reports: No Symptoms Neurological: Reports: No Symptoms Psychiatric: Reports: No Symptoms ED EXAM,LOWER BACK PAIN/INJURY - Physical Exam Exam: See Below Exam Limited By: No Limitations General Appearance: Alert, WD/WN, No Apparent Distress Eye Exam: Bilateral Eye: EOMI, Normal Inspection, PERRL Ears: Normal External Exam Nose: Normal Inspection Throat/Mouth: Normal Inspection, Normal Lips, Normal Oropharynx, Normal Voice, No Airway Compromise Head: Atraumatic, Normocephalic Neck: Normal Inspection Respiratory/Chest: No Respiratory Distress, Lungs Clear, Normal Breath Sounds, No Accessory Muscle Use, Chest Non-Tender Cardiovascular: Normal Peripheral Pulses, Regular Rate, Rhythm, No Murmur GI/Abdominal: Normal Bowel Sounds, Soft, Non-Tender, No Distention, No Mass Back Exam: Normal Inspection, Full Range of Motion, Muscle Spasm (left lower back) Extremities: Normal Inspection, Normal Range of Motion, Normal Capillary Refill Neurological: Alert, Normal Mood/Affect, Normal Dorsiflexion, Normal Plantar Flexion, Normal Gait, Normal Reflexes, No Motor/Sensory Deficits, Oriented x 3 Psychiatric: Normal Affect, Normal Mood Skin Exam: Warm, Dry, Intact, Normal Color, No Rash Course - Vital Signs Last Recorded V/S: Last Vital Signs Temp 98.1 F 11/21/18 10:26 Pulse 66 11/21/18 10:26 Resp 16 11/21/18 10:26 BP 129/65 11/21/18 10:26 Pulse Ox 95 11/21/18 10:26 - Orders/Labs/Meds Meds: Medications Discontinued Medications Generic Name Dose Route Start Last Admin Trade Name Freq PRN Reason Stop Dose Admin Ketorolac Tromethamine 30 mg 11/21/18 11:12 11/21/18 11:24 Toradol IM 11/21/18 11:13 30 mg ONETIME ONE Administration Orphenadrine Citrate 100 mg 11/21/18 11:12 11/21/18 11:26 Norflex PO 11/21/18 11:13 100 mg ONETIME ONE Administration - Re-Assessments/Exams Free Text/Narrative Re-Assessment/Exam: 11/21/18 11:20 Patient presents to the ED for the evaluation of lower back pain. I have ordered 30 mg of IM Toradol and 100 mg PO Norflex for initial management. Departure - Departure Time of Disposition: 12:00 Disposition: Home, Self-Care 01 Condition: Fair Clinical Impression: Low back pain Qualifiers: Chronicity: acute Back pain laterality: left Sciatica presence: without sciatica Qualified Code(s): M54.5 - Low back pain - Discharge Information *PRESCRIPTION DRUG MONITORING PROGRAM REVIEWED*: No *COPY OF PRESCRIPTION DRUG MONITORING REPORT IN PATIENT AKANKSHA: No Prescriptions: Orphenadrine [Norflex] 100 mg PO BID PRN #20 tab PRN Reason: Spasms Instructions: Back Pain, Adult, [id number], Back Exercises, [id number], Back Injury Prevention, [id number] Referrals: Padilla Sosa MD [Primary Care Provider] - Forms: ED Department Discharge Additional Instructions: You have been evaluated in the ED for your Left lower back pain. Please use ice/heat as tolerated to the affected area. You may take 1-2 tabs of aleve or ibuprofen 600mg q6 hrs for pain relief. Please do so until you have a tolerable level of pain with activity. Do not exceed 3200mg ibuprofen in a 24 hour time period. Please take the Norflex, 1 tab by mouth every 12 hours PRN for muscle spasms. Please return to ED if your symptoms should change or worsen.
[2018-11-21 12:47] VITALS: BP 117/64
== END 2018-11-21 12:43 | disposition home or self-care (01) ==
LOC: JD.ED 10:13
DX: M54.5 Low back pain (principal); F17.210 Nicotine dependence, cigarettes, uncomplicated; I10 Essential (primary) hypertension; E78.00 Pure hypercholesterolemia, unspecified; J45.909 Unspecified asthma, uncomplicated; K21.9 Gastro-esophageal reflux disease without esophagitis; E11.9 Type 2 diabetes mellitus without complications; Z79.84 Long term (current) use of oral hypoglycemic drugs; Z79.899 Other long term (current) drug therapy; Z79.82 Long term (current) use of aspirin; Z88.2 Allergy status to sulfonamides; Z91.018 Allergy to other foods; Z91.013 Allergy to seafood
CPT/HCPCS: 96372; 99283; A9270; J1885

== ENCOUNTER 2022-06-03 12:22 | Emergency (ER) | payer BC ==
[2022-06-03] MEDS ORDERED: Lidocaine 1% 10 ML MDV ONE (13:31)
[2022-06-03] MEDS ORDERED: Diphtheria/Tetanus Toxoids,Adult (Td) 0.5 ML SDV ONE (13:33)
[2022-06-09 20:47] VITALS: BP 155/83; PULSE 78
== END 2022-06-03 14:13 ==
LOC: JD.ED 12:22
DX: S61.211A Laceration without foreign body of left index finger without damage to nail, initial encounter (principal); I10 Essential (primary) hypertension; E11.9 Type 2 diabetes mellitus without complications; F17.200 Nicotine dependence, unspecified, uncomplicated; Z23 Encounter for immunization; Z88.2 Allergy status to sulfonamides; W26.0XXA Contact with knife, initial encounter
CPT/HCPCS: 12002; 90471; 99282-25